=== PATIENT | male | born 1990 | race Caucasian/White ===

== ENCOUNTER 2021-06-12 15:58 | Emergency (ER) | payer BC ==
[~2021-06-12] VITALS: Ht 185 cm; Wt 83.0 kg
--- NOTE | 2021-06-12 16:12 | ED Upper Extremity ---
General Chief Complaint: Laceration Stated Complaint: CUT FINGER Source: patient Exam Limitations: no limitations (HASEEB HOPE) History of Present Illness Date Seen by Provider: Jun 12, 2021 Time Seen by Provider: 16:10 Initial Comments Patient is a 30-year-old male who presents ED with a laceration to his right h and towards the second through fourth proximal palmar digits. Bleeding controlled direct pressure. 30 minutes ago he fell hitting a gate with a maribel jar when the glass broke resulting in lacerations. Not able to move his middle finger with flexion. Up-to-date his tetanus within the past year. Denies any distal numbness and tingling, skin color changes. Denies nausea, vomiting, diarrhea fever, chills. (HASEEB HOPE) Allergies and Home Medications Allergies Coded Allergies: No Known Drug Allergies (Unverified , 06/12/21) Patient Home Medication List Home Medication List Reviewed: Yes (HASEEB HOPE) Hydrocodone/Acetaminophen (Hydrocodone-Acetamin 5-325 mg) 1 Each Tablet, 1 TAB PO Q4H PRN for PAIN-MODERATE (5-7) Prescribed by: MERLINE MONROE on 06/12/21 9498 Review of Systems Constitutional: No chills, No diaphoresis, No dizziness, No fever, No malaise EENTM: No double vision, No eye pain, No vision loss, No mouth swelling, No nose pain, No throat swelling Respiratory: No cough, No dyspnea on exertion, No short of breath Cardiovascular: No chest pain, No edema Gastrointestinal: No constipation, No diarrhea, No nausea, No vomiting Genitourinary: No decreased output, No discharge Musculoskeletal: No muscle pain, No muscle stiffness, No muscle cramps Skin: No change in color, No change in hair/nails (HASEEB HOPE) Physical Exam Vital Signs Vital Signs - First Documented 06/12/21 06/12/21 16:06 17:55 Temp 36.8 Pulse 93 Resp 20 B/P (MAP) 159/94 (115) Pulse Ox 97 O2 Delivery Room Air (FILIBERTO HOLMAN MD) Vital Signs Capillary Refill : (HASEEB HOPE) Height, Weight, BMI Height: '" Weight: lbs. oz. kg; BMI Method: General Appearance: WD/WN, no apparent distress HEENT: PERRL/EOMI, normal ENT inspection, TMs normal Neck: non-tender, full range of motion, supple, normal inspection Cardiovascular: regular rate, rhythm, no edema, no gallop, no JVD Respiratory: chest non-tender, lungs clear, normal breath sounds, no respiratory distress, no accessory muscle use Gastrointestinal: normal bowel sounds, non tender, soft Back: normal inspection, no CVA tenderness, no vertebral tenderness Hand: bone tenderness, laceration (1 cm lacerations through the second through fourth palmar proximal digits.), swelling Neurologic/Tendon: motor deficit, tendon injury visualized, other (HASEEB HOPE) Procedures/Interventions Wound Location: Upper Extremities Other Wound Location rt hand ring finger Wound Length (cm): 1 Wound's Depth, Shape: superficial, sub Q Wound Explored: clean Irrigated w/ Saline (ccs): 100 Betadine Prep?: Yes Anesthesia: 1% Lidocaine Volume Anesthetic (ccs): 4 Wound Debrided: minimal Suture: Ethlion Suture Size: 5-0 Number of Sutures: 7 Layer Closure?: 1 Sterile Dressing Applied?: Yes (HASEEB HOPE) Progress 1 cm laceration to right index finger on the palmar side. 5 Ethilon 5-0 sutures were placed. 4 ml 1% lidocaine was used. Prepped with Betadine. Extensive irrigation when with 100 male. No debridement. Neurovascular intact. Patient tolerated procedure well. Gauze was placed over the area. 2 cm laceration to right middle finger on the palmar side. Extensive irrigation without any debridement. Betadine was used. 5 Ethilon 5-0 sutures were placed. 4 ml lidocaine 1% was used. Patient tolerated procedure well. Decreased flexion at the MCP joint. (HASEEB HOPE) Progress/Results/Core Measures Results/Orders Medications Given in ED Current Medications Medications Dose Ordered Sig/Abhijeet Route Start Time Stop Time Status Last Admin Dose Admin Diphtheria/ Tetanus/Acell Pertussis 0.5 ml ONCE ONCE IM 06/12/21 17:00 06/12/21 17:01 DC 06/12/21 16:57 0.5 ML Lidocaine HCl 20 ml STK-MED ONCE .ROUTE 06/12/21 16:14 06/12/21 16:17 DC 06/12/21 16:42 20 ML (FILIBERTO HOLMAN MD) Vital Signs/I&O 06/12/21 06/12/21 16:06 17:55 Temp 36.8 36.8 Pulse 93 89 Resp 20 18 B/P (MAP) 159/94 (115) 118/76 Pulse Ox 97 O2 Delivery Room Air Room Air (FILIBERTO HOLMAN MD) Departure Communication (Admissions) Patient presents to ED with 3 lacerations through his fingers of his right hand along the second third and fourth digits. Laceration located on the palmar side. Patient having difficulty flexing of the right middle finger. Does have some flexion at the DIP but I am concerned for a flexor digitorum superficialis injury. Vascularly intact. I was able to close the lacerations here in the ED. Extensive irrigation. He Was given a tetanus shot. Wound appears clean. Procedure documented note. Patient was discussed with Dr. Smith hand surgeon at [facility]. Recommends following up in 7 to 10 days. He is located in [place], [place]. If wanting to stay local in [facility] in [place] was provided for follow up with similar timeframe 7 to 10 days. Recommend darren tape. Discussed wound care. Discharged with pain medication. (HASEEB HOPE) Impression Primary Impression: Hand laceration Disposition: 01 HOME, SELF-CARE Condition: Stable Departure-Patient Inst. Decision time for Depature: 17:25 (HASEEB HOPE) Referrals: NO,LOCAL PHYSICIAN (PCP/Family) Primary Care Physician Patient Instructions: Laceration Repair With Stitches ED Add. Discharge Instructions: Need sutures out in 10 days. Need to follow-up with Dr. Strange hand surgeon in [place], [place] [phone] in1 week. May follow-up with [facility], All discharge instructions reviewed with patient and/or family. Voiced understanding. Scripts Hydrocodone/Acetaminophen (Hydrocodone-Acetamin 5-325 mg) 1 Each Tablet 1 TAB PO Q4H PRN for PAIN-MODERATE (5-7), #8 TAB Prov: HASEEB HOPE 06/12/21 ATTENDING PHYSICIAN NOTE: I was physically present as attending physician in the emergency department during the care of this patient. I discussed plan and disposition of this patient with MERLINE Casiano. I agree with referral to a hand surgeon. I was not otherwise directly involved in the decision making or delivery of care for this patient. (FILIBERTO HOLMAN MD) HASEEB HOPE Jun 12, 2021 16:12 FILIBERTO HOLMAN MD Jun 12, 2021 19:11
[2021-06-12] MEDS ORDERED: LIDOCAINE 1% INJ 20 ML VIAL ONE (16:14)
[2021-06-12] MEDS ORDERED: LIDOCAINE 1% INJ 30 ML (XYLOCAINE) VIAL INJ ONE (16:15)
--- NOTE | 2021-06-12 16:32 | Diagnostic Imaging Report ---
INDICATION: Right hand injury. EXAMINATION: AP, oblique and lateral views of the right hand were obtained. FINDINGS: Prominent lucent region is seen along the palmar aspect at the base of 3rd finger, may represent area of laceration. No fracture or malalignment is identified. There is no radiopaque foreign body. IMPRESSION: 3rd finger laceration without acute osseous abnormality detected. Dictated by: Dictated on workstation # [id number]
[2021-06-12] MEDS ORDERED: TETANUS & DIPHTHERIA TOX,ADULT 0.5 ML (TENIVAC) IM ONE (16:40)
[2021-06-12] MEDS ORDERED: TETANUS,DIPTH,PERTUSS P/F (BOOSTRIX) 0.5 ML VIAL IM ONE (17:00)
[2021-06-12 17:55] VITALS: BP 118/76
[2021-06-12] MEDS ORDERED: ACHD5005 PO (17:58)
== END 2021-06-12 17:55 | disposition home or self-care (01) ==
LOC: EDUNIT# 15:58 → ER 16:02
DX: S61.411A Laceration without foreign body of right hand, initial encounter (principal); Z23 Encounter for immunization; W22.8XXA Striking against or struck by other objects, initial encounter
CPT/HCPCS: 12002; 64450; 73130; 90715